=== PATIENT | female | born 2000 | race Caucasian/White ===

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

== ENCOUNTER → 2019-12-25 | Outpatient (CLI) | payer BC | LOC: M LABSMTC 09:50 | PROVIDERS: ATTEND Family Medicine | DX: Z11.59 Encounter for screening for other viral diseases (principal) ==

== ENCOUNTER → 2020-11-22 | Outpatient (REF) | payer BC ==
[2020-11-22 15:13] LABS: GC DNA AMPLIFICATION NEGATIVE (NEGATIVE)
== END ==
LOC: M SFHCWAGY 13:05
PROVIDERS: ATTEND Nurse Practitioner Women's Health
DX: Z12.4 Encounter for screening for malignant neoplasm of cervix (principal); R87.612 Low grade squamous intraepithelial lesion on cytologic smear of cervix (LGSIL)
CPT/HCPCS: 87491; 87591; G0123

== ENCOUNTER → 2020-12-11 | Outpatient (REF) | payer BC | LOC: M LAB REF 18:28 | PROVIDERS: ATTEND Physician Assistant Medical | DX: N39.0 Urinary tract infection, site not specified (principal) ==

== ENCOUNTER → 2021-12-13 | Outpatient (REF) | payer OTHER | LOC: M PLALAB 10:49 | PROVIDERS: ATTEND Nurse Practitioner Family | DX: Z12.4 Encounter for screening for malignant neoplasm of cervix (principal) ==

== ENCOUNTER → 2022-06-21 | Outpatient (REF) | payer OTHER | LOC: M LAB REF 18:31 | PROVIDERS: ATTEND Physician Assistant | DX: R30.0 Dysuria (principal) ==